=== PATIENT | male | born 1955 ===

== ENCOUNTER 2021-09-23 17:58 | Inpatient (IN) | payer OTHER ==
[~2021-09-23] VITALS: Ht 177 cm; Wt 70.9 kg
[2021-09-23 22:49] LABS: BASOPHILS ABSOLUTE AUTO 0.06 K/mm3 (0.00-0.23); BASOPHILS PERCENT AUTO 1 % (0-2); EOSINOPHILS ABSOLUTE AUTO 0.15 K/mm3 (0.00-0.68); EOSINOPHILS PERCENT AUTO 2 % (0-6); Hemoglobin 15.8 g/dL (13.5-17.5); IMMATURE GRAN ABSOLUTE AUTO 0.43 K/mm3 (0.00-0.10); IMMATURE GRAN PERCENT AUTO 4 % (0-1); LYMPHOCYTES ABSOLUTE AUTO 2.53 K/mm3 (0.84-5.20); LYMPHOCYTES PERCENT AUTO 25 % (21-46); MONOCYTES ABSOLUTE AUTO 0.96 K/mm3 (0.16-1.47); MONOCYTES PERCENT AUTO 10 % (4-13); Mean Corpuscular HGB 28.9 pg (26.0-34.0); Mean Corpuscular HGB Conc 32.9 g/dL (31.5-36.5); Mean Corpuscular Volume 88 fL (80-100); Mean Platelet Volume 9.3 fL (9.1-12.4); NEUTROPHILS ABSOLUTE AUTO 5.98 K/mm3 (1.96-9.15); NEUTROPHILS PERCENT AUTO 59 % (41-73); Platelet Count 174 K/mm3 (150-400); RDW Coefficient Variation 13.7 % (11.7-14.2); RDW Standard Deviation 43.8 fL (35.1-46.3); Red Blood Cell Count 5.47 M/mm3 (4.30-5.90); White Blood Cell Count 10.11 K/mm3 (4.00-11.30)
[2021-09-23 23:02] LABS: Alanine Aminotransfer (ALT/SGP 35 U/L (12-78); Albumin, Blood 2.6 g/dL (3.4-5.0); Albumin/Globulin Ratio 0.7 (0.8-1.8); Alk Phos 75 U/L (50-136); Anion Gap 5 mmol/L (6-16); Aspartate Aminotrans (AST/SGOT 19 U/L (12-37); Bilirubin, Total 0.7 mg/dL (0.1-1.0); Blood Urea Nitrogen 24 mg/dL (8-24); Bun/Creatinine Ratio 22.2 (12.0-20.0); CO2, Blood 29 mmol/L (21-32); Chloride, Blood 106 mmol/L (98-108); Creatinine, Blood 1.08 mg/dL (0.60-1.20); Globulin, Blood 3.6 g/dL (2.2-4.0); Glomerular Filtration Rate 77 (60-); Glucose, Blood 92 mg/dL (70-99); Magnesium, Blood 2.5 mg/dL (1.6-2.4); Potassium, Blood 4.2 mmol/L (3.5-5.5); Sodium, Blood 140 mmol/L (136-145); Total Protein, Blood 6.2 g/dL (6.4-8.2)
[2021-09-23] MEDS ORDERED: SYNTHROID137 MCG PO (23:08)
[2021-09-23 23:22] LABS: Anti-Xa UFH, PHA Monitoring 0.63 IU/mL
--- NOTE | 2021-09-24 | NUR ---
PT DIRECT ADMITTED TO ICU 6 UNDER PCU STATUS. REPORT RECEIVED FROM REACH TEAM. PT NON KINYARWANDA SPEAKING. WITH THIS RN'S SOMEWHAT LIMITED KISWAHILI WAS ABLE TO INTERVIEW PT. HE DENIES CHEST PAIN. IS ALERT AND ORIENTED. PLEASANT AND COOPERATIVE WITH CARE AND ASSESSMENT. WILL REVIEW CHART AND PLAN OF CARE FOR THIS PT.
[2021-09-24 00:12] LABS: CHOL/HDL RATIO 3.1; Cholesterol 179 mg/dL (50-200); HDL Cholesterol 58 mg/dL (>39); LDL/HDL RATIO 1.5; Low Density Lipoprotein Chol 86 mg/dL (0-110); Thyroid Stimulating Hormone 0.151 uIU/mL (0.360-4.800); Triglycerides 173 mg/dL (30-160); Very Low Density Lipoprot Chol 34 mg/dL (6-32)
[2021-09-24 04:19] LABS: BASOPHILS ABSOLUTE AUTO 0.06 K/mm3 (0.00-0.23); BASOPHILS PERCENT AUTO 1 % (0-2); EOSINOPHILS ABSOLUTE AUTO 0.17 K/mm3 (0.00-0.68); EOSINOPHILS PERCENT AUTO 2 % (0-6); Hematocrit 47.2 % (37.0-53.0); Hemoglobin 15.7 g/dL (13.5-17.5); IMMATURE GRAN ABSOLUTE AUTO 0.34 K/mm3 (0.00-0.10); IMMATURE GRAN PERCENT AUTO 3 % (0-1); LYMPHOCYTES ABSOLUTE AUTO 2.29 K/mm3 (0.84-5.20); LYMPHOCYTES PERCENT AUTO 22 % (21-46); MONOCYTES ABSOLUTE AUTO 1.04 K/mm3 (0.16-1.47); MONOCYTES PERCENT AUTO 10 % (4-13); Mean Corpuscular HGB 28.9 pg (26.0-34.0); Mean Corpuscular HGB Conc 33.3 g/dL (31.5-36.5); Mean Corpuscular Volume 87 fL (80-100); Mean Platelet Volume 9.3 fL (9.1-12.4); NEUTROPHILS ABSOLUTE AUTO 6.51 K/mm3 (1.96-9.15); NEUTROPHILS PERCENT AUTO 63 % (41-73); Platelet Count 181 K/mm3 (150-400); RDW Coefficient Variation 13.7 % (11.7-14.2); RDW Standard Deviation 43.4 fL (35.1-46.3); Red Blood Cell Count 5.44 M/mm3 (4.30-5.90); White Blood Cell Count 10.41 K/mm3 (4.00-11.30)
[2021-09-24 04:36] LABS: Bun/Creatinine Ratio 21.9 (12.0-20.0); Calcium, Blood 9.6 mg/dL (8.5-10.1); Creatinine, Blood 1.14 mg/dL (0.60-1.20); Potassium, Blood 4.3 mmol/L (3.5-5.5)
--- NOTE | 2021-09-24 06:30 | NUR ---
PT CONTINUES WITHOUT COMPLAINTS OF CHEST PAIN OR DYSPNEA. HAS BEEN NPO SINCE 0 PENDING CARDIOLOGY CONSULT. PT'S , MONI ROOMS IN FOR THE NIGHT. PT HAS BEEN ABLE TO MOVE ABOUT IN BED ON HIS OWN. STANDS AT SIDE OF BED TO VOID, Q.S. HEPARIN CONTINUES PER PHARMACY. WILL CONTINUE TO MONITOR PT, AND WILL REPORT OFF TO ONCOMING RN.
--- NOTE | 2021-09-24 07:30 | NUR ---
TOOK OVER CARE OF PT AT 0700, PT ON HEPARIN GTT AT 15. PT RESTING ON RA
--- NOTE | 2021-09-24 09:03 | NUR ---
IN ROOM TO DISCUSS ANGIOGRAM AND POSSIBLE STENT PLACEMENT. SAFEKEEPING CLERK PHONE USED, CONSENT SIGNED IN PT'S FIRST LANGUAGE. HEPARIN STOPPED PER .
--- NOTE | 2021-09-24 10:27 | NUR ---
PT TAKEN TO RIB KNITTER
--- NOTE | 2021-09-24 13:31 | NUR ---
PT RETURNED FROM GAUGE OPERATOR AT 1323, TR BAND IN PLACE ON RIGHT WRIST
--- NOTE | 2021-09-24 18:00 | NUR ---
SUMMARY NEURO; A/O X3 - REORIENTED TO FACILITY ([facility] FROM [facility]) CARDIAC; NSR/SINUS TACH ON TELE. STENT PLACED IN RCA, TR BAND REMOVED FROM RT RADIAL WITHOUT INCIDENT. CP DECREASED SINCE PROCEDURE. LUNGS;WNL SKIN: WNL GI:WNL :WNL ON ROOM AIR, NO DRIPS RUNNING
--- NOTE | 2021-09-24 21:21 | NUR ---
SHIFT ASSESSMENT ASSUMED CARE OF PT @ 1900. TRANSLATION PHONE USED TO COMMUNICATE, PT ONLY SPEAKS [place]. PT ALERT AND ORIENTED, FOLLOWS ALL COMMANDS. C/O MILD CP, MEDICATED c PRN ACETAMINOPHEN. CP DOES NOT RADIATE, PT DENIES SOB. VSS. SINUS/ SINUS TACH ON VINEGAR MAKER. CALL LIGHT IN REACH, WILL MONITOR CLOSELY.
--- NOTE | 2021-09-24 21:40 | NUR ---
ASSUMED CARE PT ARRIVED AT APPROX 2140 VIA WHEELCHAIR WITH ALL BELONGINGS. PT VITALS ARE STABLE. DENIES CHEST PAIN BUT REPORTS FEELING SHORT OF BREATH. PT PUT ON 2L NC AND HAS SATS OF ABOVE 92%. IS AT BEDSIDE.
--- NOTE | 2021-09-25 06:10 | NUR ---
SHIFT SUMMARY PT IS ALERT AND ORIENTED. SWAZI SPEAKING ONLY. VITALS ARE STABLE AND IS ON ROOM AIR AT THE TIME WITH SATS ABOVE 95%. HE WAS ON 1L NC WHEN HE ARRIVED TO PCU BECAUSE HE WAS REPORTING SOB WITH DEEP INSPIRATIONS. PT DENIES CHEST PAIN/PRESSURE. PT IS ABLE TO AMBULATE AROUND ROOM WITH STABLE GAIT AND USING URINAL AT BEDSIDE. IS AT BEDSIDE AND IS ALSO SWAZI SPEAKING ONLY. CALL LIGHT IS WITHIN REACH.
[2021-09-25] MEDS ORDERED: Aspir 8181 MG PO (10:21)
[2021-09-25] MEDS ORDERED: ATOR80 PO (10:22)
[2021-09-25] MEDS ORDERED: CLOP75 PO (10:23)
[2021-09-25] MEDS ORDERED: METO25 PO (10:24)
--- NOTE | 2021-09-25 12:37 | NUR ---
DISCHARGE UPDATE DISCHARGE PACKET GONE OVER WITH PT, PT , AND PT DAUGHTER AT 1220. STENT CARD IN DISCHARGE PACKET AND WITH PT FOR DISCHARGE. PT LEFT UNIT AT 1230 VIA WHEELCHAIR, PT ABLE TO TRANSFER SELF TO AND FROM WHEELCHAIR. PT BELONGINGS IN BAGS AND WITH PT DURING DISCHARGE.
== END 2021-09-25 12:40 | disposition home or self-care (01) | DRG 247 ==
LOC: MEDS 17:58 → PCU 22:26 → ICUE 22:26 → PCU 09-24 21:45
PROVIDERS: Family Medicine; ADMIT Internal Medicine
PROC: 027034Z Dilation of Coronary Artery, One Artery with Drug-eluting Intraluminal Device, Percutaneous Approach (ICD-10-PCS; principal; 2021-09-24)
PROC: 4A023N7 Measurement of Cardiac Sampling and Pressure, Left Heart, Percutaneous Approach (ICD-10-PCS; 2021-09-24)
PROC: B2111ZZ Fluoroscopy of Multiple Coronary Arteries using Low Osmolar Contrast (ICD-10-PCS; 2021-09-24)
DX: I21.4 Non-ST elevation (NSTEMI) myocardial infarction (principal); I27.20 Pulmonary hypertension, unspecified; I10 Essential (primary) hypertension; E03.9 Hypothyroidism, unspecified; Z88.0 Allergy status to penicillin; Z79.82 Long term (current) use of aspirin; Z79.899 Other long term (current) drug therapy
CPT/HCPCS: 36415; 80048; 80053; 80061; 83735; 83880; 84443; 84484; 85025; 85347; 85520; 85730; 86850; 86900; 86901; 92921; 93005; 93010; 93306; 93454; 99152; 99153; A9270; C1725; C1769; C1874; C1887; C1894; C9600; J0171; J0461; J1644; J2250; J3010; J7030; J7040; Q9967